=== PATIENT | female | born 1935 | race Caucasian/White ===

== ENCOUNTER → 2022-09-07 11:35 | Outpatient (CLI) | payer MEDICARE, OTHER, SELFPAY ==
--- NOTE | 2022-09-07 | DI.MRI.S_ITS ---
PROCEDURE: MR LUMBAR SPINE WO CON INDICATIONS: spinal stenosis TECHNIQUE: Noncontrast sagittal T1 spin echo and T2 fast echo, sagittal STIR, and T2 fast spin echo through the lumbar spine. In cases with scoliosis, additional coronal T2 fast spin echo may be performed. COMPARISON: [facility] [place], CR, XR LUMBAR SPINE WITH OBLIQUES PLUS FLEXION EXTENSION, 08/31/2022, 16:25. [facility], MR, L-SPINE WITHOUT CONTRAST, 02/07/2018, 10:32. FINDINGS: Image quality: This examination is limited by involuntary motion artifact. Alignment and Curvature: Mild levoconvex scoliotic curvature is noted. There is minimal retrolisthesis seen at the L2-L3 level. Minimal retrolisthesis is seen at L5-S1. Bone Marrow: Marrow is of normal overall signal. No acute vertebral body compression fractures. Spinal Cord: Conus medullaris terminates at the L1 level. Visualized cord demonstrates normal signal and size. Paraspinous Soft Tissues: No paravertebral masses. T12-L1: At least moderate loss of disc height and disc signal can be seen. Reactive marrow endplate changes are seen which are hypointense on T1-weighted imaging and hyperintense on T2 weighted imaging, which is most consistent with edema (Modic type I changes). Mild generalized disc bulge is seen. Bridging endplate osteophytes are seen. There is moderate right-sided and no left-sided neural foraminal narrowing. Minimal central canal narrowing is seen. These imaging findings have progressed compared to the prior study. L1-L2: At least moderate loss of disc height and disc signal can be seen. Reactive marrow endplate changes are seen, which are hyperintense on T1-weighted and T2-weighted imaging and most consistent with fatty metaplasia (Modic type II changes). Mild to moderate disc bulge is seen. Bridging endplate osteophytes are seen. Mild to moderate facet hypertrophy is seen. There is at least moderate right-sided and no left-sided neural foraminal narrowing. No significant central canal narrowing is seen. The previously seen endplate edema is no longer seen. L2-L3: [id number] loss of disc height and disc signal can be seen. Moderate generalized disc bulge is seen. Mild facet joint hypertrophy is seen. There is moderate right-sided and [id number] left-sided neural foraminal narrowing. Mild central canal narrowing is seen. When comparison is made with the prior images, these findings are similar. L3-L4: The disc height is well-preserved. Loss of disc signal is seen at this level. Mild to moderate disc bulge is seen. Mild to moderate facet hypertrophy is seen. Associated hypertrophy of the ligamentum flavum can be seen. Mild to moderate bilateral neural foraminal narrowing can be seen. Moderate central canal narrowing is seen. These degenerative changes are slightly progressed compared to 2018. L4-L5: There is at least moderate loss of disc height and disc signal seen on the left. At least moderate disc bulge is seen, which is eccentric to the left. Bridging endplate osteophytes are seen on the left side. Moderate facet joint hypertrophy is seen. Associated hypertrophy of the ligamentum flavum can be seen. There is at least moderate left-sided and no right-sided neural foraminal narrowing. Moderate central canal narrowing is seen. These degenerative changes are similar to 2018. L5-S1: Moderate loss of disc height is seen. Loss of disc signal is seen. Mild to moderate disc bulge is seen. Moderate facet joint hypertrophy is seen. Moderate bilateral neural foraminal narrowing is seen. No significant central canal narrowing is seen. No significant change from the prior. IMPRESSION: Multiple levels of lumbar spine degenerative change are seen, which are progressed since 2018 at T12-L1 and L3-L4. The previously seen endplate edema at L1-L2 is no longer seen. Dictated by: Olaf Ling M.D. on 09/07/2022 at 14:31 Approved by: Olaf Ling M.D. on 09/07/2022 at 14:36
== END ==
PROVIDERS: PCP Family Medicine; Referring Provider Physical Medicine & Rehabilitation Pain Medicine; Visit Provider Physical Medicine & Rehabilitation Pain Medicine
DX: M48.062 Spinal stenosis, lumbar region with neurogenic claudication (principal); M47.815 Spondylosis without myelopathy or radiculopathy, thoracolumbar region; M47.816 Spondylosis without myelopathy or radiculopathy, lumbar region
CPT/HCPCS: 72148